=== PATIENT | male | born 1990 | race Caucasian/White ===

== ENCOUNTER 2017-05-30 13:19 | Inpatient (IN) | payer OTHER ==
[~2017-05-30] VITALS: Ht 180.3 cm; Wt 83.9 kg
[~2017-05-30 13:19] MED LIST: ACETAMINOPHEN-1 EAC1 PO; CEPHALEXIN 500500 M3 PO; IBUPROFEN 800800 M1 PO
[2017-05-30 13:25] VITALS: BP 134/88
[2017-05-30 13:48] LABS: HEMATOCRIT 50.8 % (42.0-52.0); HEMOGLOBIN 17.2 gm/dL (14.0-18.0); MCH 31.6 pg (26.0-34.0); MCHC 33.8 g/dL (28.0-37.0); MCV 93.7 fL (80.0-100.0); MPV 7.8 fl. (7.2-11.1); NUCLEATED RBCS 0 /100WBC; PLATELET COUNT* 253 thou/uL (150-400); RBC 5.42 mil/uL (4.50-6.00); RDW-CV 13.4 % (10.5-14.5); WBC 13.7 thou/uL (4.0-11.0)
[2017-05-30 14:25] LABS: CALCIUM 7.8 mg/dL (8.5-10.1); CREATININE 1.1 mg/dL (0.6-1.3); POTASSIUM 4.4 mmol/L (3.5-5.1)
[2017-05-30 14:29] LABS: ALBUMIN 3.4 g/dL (3.4-5.0); TOTAL BILIRUBIN 0.6 mg/dL (<0.1-1.0); TOTAL PROTEIN 6.4 g/dL (6.4-8.2)
[2017-05-30 14:31] LABS: ABSOLUTE LYMPHOCYTES 0.4 thou/uL (0.8-5.3); ABSOLUTE MONOCYTES 0.1 thou/uL (0.0-1.2); ABSOLUTE NEUTROPHILS 13.2 thou/uL (1.6-8.1)
[2017-05-30 14:32] LABS: PLATELET ESTIMATE ADEQUATE
--- NOTE | 2017-05-30 14:52 | NUR ---
CT ABD/PEL WITH CONTRAST COMPLEATED PT RETURNED TO ED
[2017-05-30 15:33] LABS: URINE BILIRUBIN NEGATIVE (Negative); URINE BLOOD NEGATIVE (Negative); URINE CLARITY CLEAR; URINE COLOR YELLOW; URINE GLUCOSE-RANDOM NEGATIVE (Negative); URINE KETONES NEGATIVE (Negative); URINE LEUKOCYTES-REFLEX NEGATIVE (Negative); URINE NITRITE-REFLEX NEGATIVE (Negative); URINE PROTEIN NEGATIVE (Negative); URINE SPECIFIC GRAVITY <= 1.005 (1.005-1.030)
[2017-05-30 17:19] LABS: AMP/METHAMP Negative (Negative); BARBITURATES Negative (Negative); BENZODIAZEPINES Negative (Negative); COCAINE Negative (Negative); METHADONE Negative (Negative); OPIATES Negative (Negative); PCP Negative (Negative); THC Negative (Negative)
[2017-05-30 18:00] VITALS: BP 144/87
[2017-05-30 18:15] VITALS: BP 134/88
--- NOTE | 2017-05-30 19:57 | NUR ---
PATIENT ADMITTED TO ROOM 307 VIA CART FROM ER AT 1800. PATIENT'S ADMISSION HISTORY, ASSESSMENT AND VITALS CHARTED. PATIENT'S NG RESUMED TO LIS, WITH YELLOW SECRETIONS NOTED. PATIENT'S IV FLUIDS INFUSING. REFUSING SCDS. PATIENT NPO. ORIENTED TO ROOM AND ENVIRONMENT. CALL LIGHT WITHIN REACH. WILL CONTINUE WITH PLAN OF CARE.
[2017-05-30] MEDS ORDERED: PROBIOTIC1 EAC1 PO (19:59)
[2017-05-30 21:42] LABS: INFLUENZA A ANTIGEN None Detected (None Detect); INFLUENZA B ANTIGEN None Detected (None Detect)
[2017-05-30 23:26] VITALS: BP 129/78
[2017-05-31 04:51] LABS: ABSOLUTE LYMPHOCYTES 0.4 thou/uL (0.8-5.3); ABSOLUTE MONOCYTES 0.5 thou/uL (0.0-1.2); ABSOLUTE NEUTROPHILS 6.7 thou/uL (1.6-8.1); HEMATOCRIT 44.8 % (42.0-52.0); LYMPHOCYTES 5.5 %; MCH 31.3 pg (26.0-34.0); MCHC 33.1 g/dL (28.0-37.0); MCV 94.5 fL (80.0-100.0); MONOCYTES 6.3 %; MPV 8.3 fl. (7.2-11.1); NUCLEATED RBCS 0 /100WBC; PLATELET COUNT* 204 thou/uL (150-400); POLYS 88.2 %; RBC 4.74 mil/uL (4.50-6.00); RDW-CV 13.5 % (10.5-14.5); WBC 7.6 thou/uL (4.0-11.0)
[2017-05-31 05:17] LABS: CALCIUM 7.4 mg/dL (8.5-10.1); CREATININE 1.1 mg/dL (0.6-1.3); MAGNESIUM 1.6 mg/dL (1.8-2.4); PHOSPHORUS* 3.8 mg/dL (2.5-4.9); POTASSIUM 4.1 mmol/L (3.5-5.1)
[2017-05-31 05:24] LABS: HEMOGLOBIN 14.8 gm/dL (14.0-18.0)
--- NOTE | 2017-05-31 05:57 | NUR ---
ASSESSMENT COMPLETE. PT SLEPT MOST OF THE NIGHT. PT HAD LOW GRADE TEMP, TORADOL GIVEN AND TEMP CAME DOWN. TORADOL AND MORPHINE GIVEN FOR PAIN ONCE THROUGH THE NIGHT. NAUSEA MEDICATION GIVEN ONCE. PT HAS NG TO RIGHT NARE LIS. FLU SWAB NEGATIVE. PT HAS BEEN NPO. PT USES URINAL NEEDED. PT HAS IV FLUIDS INFUSING IN LEFT AC. SKIN INTACT. SEE ASSESSMENT AND VITALS FOR OTHER DETAILS. CALL LIGHT WITHIN REACH, WILL CONTINUE TO MONITOR
[2017-05-31 08:45] VITALS: BP 120/79
--- NOTE | 2017-05-31 13:59 | NUR ---
CHART REVIEWED, SPOKE WITH PT. PT IS ACTIVE AND INDEP, INCLUDING WORKING. PT SAID HE WAS OFF WORK THIS WEEK ANYWAY. PT DENIES ANY DISCHARGE NEEDS. PT WANTING TO KNOW WHAT HIS TEST RESULTS FROM THIS MORNING WERE, SPOKE WITH NURSING AND THEY ARE TRYING TO GET TEST RESULTS AND WILL LET PT KNOW.
[2017-05-31 16:11] VITALS: BP 135/76
--- NOTE | 2017-05-31 16:38 | NUR ---
PATIENT'S NG TUBE REMOVED. TOLERATING CLEAR LIQUIDS. DENIES PAIN OR N/V. WILL CONTINUE WITH PLAN OF CARE.
--- NOTE | 2017-05-31 19:39 | NUR ---
PATIENT HAS BEEN A/O X 4 THIS SHIFT. MEDICATED FOR ABDOMINAL PAIN THIS AM WITH GOOD RELIEF. HAS NOT NEEDED ANY PAIN MEDS THIS AFTERNOON. HAS DENIED NAUSEA THIS SHIFT. HAD UGI WITH SMALL BOWEL FOLLOW THRU COMPLETED THIS SHIFT. PATIENT UP AD ABIEL IN ROOM. CONTINUES ON IV FLUIDS. STARTED ON CLEAR LIQUIDS AND TOLERATED WITHOUT ANY N/V OR PAIN. NG TUBE DISCONTINUED. HOURLY ROUNDING COMPLETED. CALL LIGHT WITHIN REACH. WILL CONTINUE WITH PLAN OF CARE.
[2017-05-31 19:40] VITALS: BP 114/73
--- NOTE | 2017-06-01 06:15 | NUR ---
ASSESSMENT COMPLETE. PT SLEPT THROUGH THE NIGHT WITHOUT ANY CONCERNS. PT DENIES N/V AND PAIN. PT HAS IV FLUIDS INFUSING. PT IS TOLERATING CLEAR LIQUID DIET. PT IS UP AD ABIEL TO BATHROOM WITH A STEADY GAIT. SEE ASSESSMENT AND VITALS FOR OTHER DETAILS. CALL LIGHT WITHIN REACH, WILL CONTIUE TO MONITOR
[2017-06-01 08:00] VITALS: BP 117/60
--- NOTE | 2017-06-01 08:00 | NUR ---
ASSUMED PT. CARE AND RECEIVED REPORT AT 0730. PT A/OX4, VSS, PT. DENIES CURRENT PAIN. PT. REPORTS HE IS HAVING BM'S SINCE RECEIVING CONTRAST YESTERDAY. FULL ASSESSMENT COMPLETED, REFER TO CHARTING. PT. TO EAT REGULAR DIET AND DC TODAY IF TOLERATES. WILL CONTINUE WITH PLAN OF CARE.
[2017-06-01 11:35] VITALS: BP 114/73
--- NOTE | 2017-06-01 11:45 | NUR ---
DC ORDERS RECEIVED. IV REMOVED. CLARIFIED WITH DR. CONDE THAT PT. DID NOT NEED TO SEE DR. RUSSO PRIOR TO DC. PT. GIVEN DC INSTRUCTIONS, VERBALIZED UNDERSTANDING. PT LEFT VIA WHEELCHAIR WITH FAMILY TO RETURN HOME IN PERSONAL VEHICLE, ALL BELONGINGS ACCOUNTED FOR.
== END 2017-06-01 11:45 | disposition home or self-care (01) | DRG 389 ==
LOC: M.ERS 13:19 → M.TBA-ER 16:59 → M.3W 16:59
PROVIDERS: Physician Assistant; ADMIT Surgery
PROC: 0D9670Z Drainage of Stomach with Drainage Device, Via Natural or Artificial Opening (ICD-10-PCS; principal; 2017-05-30)
DX: K56.609 Unspecified intestinal obstruction, unspecified as to partial versus complete obstruction (principal); R65.10 Systemic inflammatory response syndrome (SIRS) of non-infectious origin without acute organ dysfunction; F17.220 Nicotine dependence, chewing tobacco, uncomplicated; D72.829 Elevated white blood cell count, unspecified; Z79.899 Other long term (current) drug therapy